=== PATIENT | male | born 1985 | race Caucasian/White ===

== ENCOUNTER 2020-11-24 11:02 | Emergency (ER) | payer OTHER ==
[~2020-11-24] VITALS: Ht 177.8 cm; Wt 81.6 kg
--- NOTE | 2020-11-24 11:58 | NUR ---
BIBSELF C/O FEVER, CHILLS, COUGH, N/V/D, X 1 WEEK, CAME BACK FROM [facility] LAST FRIDAY. THE PATIENT DENIES PAIN. IN ROOM AIR AND DENIES SOB. RESPIRATION REGULAR AND UNLABORED. ATTACHED TO THE MONITOR. WILL CONTINUE TO MONITOR THE PATIENT.
[2020-11-24] MEDS ORDERED: ACETAMINOPHEN 325 MG TABLET PO ONE (12:00)
[2020-11-24] MEDS ORDERED: IV NS 0.9% 1,000 ML BAG IV ONE (12:00)
[2020-11-24] MEDS ORDERED: KETOROLAC TROMETHAMINE INJ 30 MG/ML VIAL IV ONE (12:00)
--- NOTE | 2020-11-24 12:48 | NUR ---
COVID SWAB DONE AND SENT TO THE LAB
--- NOTE | 2020-11-24 12:48 | NUR ---
STARTED LAC G 18, BLOOD SPECIMEN COLLECTED AND SENT TO THE LAB. LINE IS SALINE LOCKED. THE PATIENT TOLERATED IV INSERTION WELL.
[2020-11-24] MEDS ORDERED: ACETAMINOPHEN 325 MG TABLET ONE (12:49)
[2020-11-24] MEDS ORDERED: KETOROLAC TROMETHAMINE 15 MG/ML VIAL ONE (12:49)
[2020-11-24 13:10] LABS: BASOPHILS % (AUTO) 0.1 % (0.0-2.0); HEMATOCRIT 47 % (39-51); HEMOGLOBIN 16.3 g/dL (13.5-17.5); LYMPHOCYTES # (AUTO) 0.5 K/uL (0.8-4.8); LYMPHOCYTES % (AUTO) 8.9 % (20.0-44.0); MEAN CORPUSCULAR HGB CONC 35 g/dl (31.0-36.0); MEAN CORPUSCULAR VOLUME 92 fL (80-96); MONOCYTES # (AUTO) 0.3 K/uL (0.1-1.30); MONOCYTES % (AUTO) 5.5 % (2.0-12.0); NEUTROPHILS # (AUTO) 4.8 K/uL (1.8-8.9); NEUTROPHILS % (AUTO) 85.5 % (43.0-81.0); PLATELET COUNT (AUTO) 165 K/uL (150-450); WHITE BLOOD COUNT (AUTO) 5.7 K/uL (4.3-11.0)
[2020-11-24 13:19] LABS: CALCIUM, SERUM 9.1 mg/dL (8.5-10.1); CARBON DIOXIDE 27 mmol/L (21-32); CHLORIDE 97 mmol/L (98-107); GLUCOSE 103 mg/dL (74-106); POTASSIUM 3.7 mmol/L (3.5-5.1); SODIUM SERUM 135 mmol/L (136-145); UREA NITROGEN, BLOOD 17 mg/dL (7-18)
[2020-11-24 13:24] LABS: ALANINE AMINOTRANSFERASE 35 U/L (12-78); ALBUMIN 3.6 g/dL (3.4-5.0); ALKALINE PHOSPHATASE 60 U/L (46-116); ASPARTATE AMINOTRANSFERASE 32 U/L (15-37); BILIRUBIN,DIRECT 0.1 mg/dL (0.0-0.2); BILIRUBIN,TOTAL 0.4 mg/dL (0.2-1.0)
--- NOTE | 2020-11-24 14:04 | NUR ---
Received an order of Zofran 4 mg iv push once from Dr Jurado. The order is read back, verified. Noted and carried out.
[2020-11-24] MEDS ORDERED: ONDANSETRON HCL/PF - ER 4 MG/2 ML VIAL IV ONE (14:30)
--- NOTE | 2020-11-24 14:52 | NUR ---
PCR SWAB DONE AND SENT TO THE LAB
[2020-11-24] MEDS ORDERED: COLC0.6C3 PO (15:13)
[2020-11-24] MEDS ORDERED: AMOX-430 PO (15:13)
[2020-11-24] MEDS ORDERED: AZIT250T13 PO (15:13)
[2020-11-24 15:41] LABS: C-REACTIVE PROTEIN 9.3 mg/dL (0.0-0.9)
[2020-11-24] MEDS ORDERED: BENZ-13 PO (15:53)
[2020-11-24 16:39] VITALS: BP 125/67
--- NOTE | 2020-11-24 16:39 | NUR ---
IV removed. Catheter intact and site benign. Pressure and 4x4 applied to site. No bleeding noted.Patient discharged to home in stable condition. Written and verbal after care instructions given. Patient verbalizes understanding of instruction.
== END 2020-11-24 16:40 | disposition home or self-care (01) ==
LOC: ER 11:10
DX: U07.1 COVID-19 (principal); J12.82 Pneumonia due to coronavirus disease 2019; R00.0 Tachycardia, unspecified; R79.89 Other specified abnormal findings of blood chemistry
CPT/HCPCS: 36415; 71045; 80048; 80076; 82550; 82728; 83605; 83615; 83880; 84145; 84484; 85025; 85378; 85730; 86140; 87040 ×2; 87426; 93005; 96361; 96374; 96375; 99285; C9803 ×2; J1885; J2405; J7030; J7040; U0003